=== PATIENT | female | born 1960 | race Two or more races ===

== ENCOUNTER 2017-11-15 14:09 | Emergency (ER) | payer OTHER ==
[~2017-11-15] VITALS: Ht 160 cm; Wt 79.4 kg
[2017-11-15 14:16] VITALS: BP 123/86
[2017-11-15] MEDS ORDERED: IBUPROFEN 800 MG TAB PO ONE (17:45)
== END 2017-11-15 17:52 | disposition home or self-care (01) ==
LOC: ER 14:09
DX: S90.32XA Contusion of left foot, initial encounter (principal); E78.5 Hyperlipidemia, unspecified; E07.9 Disorder of thyroid, unspecified; K21.9 Gastro-esophageal reflux disease without esophagitis; E03.9 Hypothyroidism, unspecified; R20.0 Anesthesia of skin; W17.89XA Other fall from one level to another, initial encounter; Y93.89 Activity, other specified; Y92.89 Other specified places as the place of occurrence of the external cause; Y99.8 Other external cause status
CPT/HCPCS: 73630

== ENCOUNTER 2021-11-06 20:12 | Emergency (ER) | payer OTHER ==
[~2021-11-06] VITALS: Ht 157.5 cm; Wt 79.4 kg
[~2021-11-06 20:12] MED LIST: DEXL60CA4 PO; LEVO150T10 PO; SIMV-13 PO; VENL-192 PO
[2021-11-06 21:18] VITALS: BP 123/81
== END 2021-11-06 23:16 | disposition home or self-care (01) ==
LOC: ER 20:12
DX: S63.501A Unspecified sprain of right wrist, initial encounter (principal); E78.5 Hyperlipidemia, unspecified; J45.909 Unspecified asthma, uncomplicated; Z88.1 Allergy status to other antibiotic agents; Z88.8 Allergy status to other drugs, medicaments and biological substances; W01.0XXA Fall on same level from slipping, tripping and stumbling without subsequent striking against object, initial encounter; Y93.89 Activity, other specified; Y92.89 Other specified places as the place of occurrence of the external cause; Y99.8 Other external cause status
CPT/HCPCS: 29125; 73110

== ENCOUNTER 2023-07-01 17:42 | Emergency (ER) | payer OTHER ==
[~2023-07-01] VITALS: Ht 157.5 cm; Wt 83.6 kg
[~2023-07-01 17:42] MED LIST changes: -SIMV-13 PO; +SIMV40TA18 PO
[2023-07-01 18:27] VITALS: BP 112/75; PULSE 85; RESP 18; TEMP 97.7; O2SAT 96
[2023-07-01] MEDS ORDERED: ACET500T58 PO (19:17)
== END 2023-07-01 20:13 | disposition home or self-care (01) ==
LOC: ER 17:42
DX: S46.912A Strain of unspecified muscle, fascia and tendon at shoulder and upper arm level, left arm, initial encounter (principal); S16.1XXA Strain of muscle, fascia and tendon at neck level, initial encounter; S29.019A Strain of muscle and tendon of unspecified wall of thorax, initial encounter; E78.5 Hyperlipidemia, unspecified; I10 Essential (primary) hypertension; J45.909 Unspecified asthma, uncomplicated; Z88.6 Allergy status to analgesic agent; Z88.1 Allergy status to other antibiotic agents; V43.52XA Car driver injured in collision with other type car in traffic accident, initial encounter; Y93.89 Activity, other specified; Y92.488 Other paved roadways as the place of occurrence of the external cause; Y99.8 Other external cause status
CPT/HCPCS: 72040; 72070; 73030